=== PATIENT | female | born 1985 | race Caucasian/White ===

== ENCOUNTER 2017-05-13 15:02 | Inpatient (IN) | payer OTHER ==
[~2017-05-13 15:02] MED LIST: ALBUAER3 INH; HEMAPLEX PO; PREN1TAB58
[2017-05-20] VITALS (8 sets, daily range): BP systolic 112–145; BP diastolic 57–89; PULSE 61–86; RESP 18–20; TEMP 97.8–98.8; O2SAT 96–97
[2017-05-20] MEDS ORDERED: LACTATED RINGER'S 1000 ML INJ 1,000 ML IV ONE (08:57)
[2017-05-20] MEDS ORDERED: LACTATED RINGER'S 1000 ML INJ 1,000 ML IV SCH ×2 (09:27→17:15)
--- NOTE | 2017-05-20 09:29 | HHI.HP ---
HPI Chief Complaint Scheduled C/S Date Seen: May 20, 2017 Time Seen: 09:20 Travel History International Travel<30 Days: No Contact w/Intl Traveler<30Days: No History of Present Illness HPI 31-year-old presenting for scheduled primary for breech presentation with failed external cephalic version. At this time, she has no physical concerns. Denies chest pain, shortness of breath, dysuria, fever/ chills. Denies vaginal bleeding, contractions, leakage of fluid. Feeling positive movement. History Past Medical History Narrative Medical Mild to moderate asthma; last exacerbation 3 months ago Obstetric History Obstetric History First delivered vaginally Past Surgical History Surgical History: No Previous Surgery Family History Narrative Family History Sibling had seizures during , patient does not know if this was preeclampsia are not Social History Alcohol Use: No Tobacco Use: Yes (current 1 pack per day smoker, 15 pack year history) Substance Abuse: No Allergies-Medications (Allergen,Severity, Reaction): Coded Allergies: No Known Allergies (Unverified , 05/16/17) Home Meds Active Scripts [hemaplex] No Conflict Check2 Tab PO DAILY Prov:Caitlyn Johnson 05/01/17 Reported Medications Vit/Iron Fumarate/FA ( Vitamin Formula Tb)1 Each Tablet 05/01/17 Albuterol 8.5 GM Inh (Proair Hfa 8.5 GM Inh)90 Mcg/Act Aer2 Puff INH Q4-6H PRN ( SHORTNESS OF BREATH) #1 INHALER Ref 0 108 mcg/actuation 05/01/17 Review of Systems Except as stated in HPI: all other systems reviewed are Neg Physical Exam Narrative GENERAL: Well-nourished, well-developed patient. SKIN: Warm and dry. HEAD: Normocephalic and atraumatic. EYES: No scleral icterus. No injection or drainage. ENT: No nasal drainage noted. Mucous membranes pink. Airway patent. NECK: Supple, trachea midline. No JVD. CARDIOVASCULAR: Regular rate and rhythm without murmurs, gallops, or rubs. RESPIRATORY: Breath sounds equal bilaterally. No accessory muscle use. GENERAL: Well-nourished, well-developed patient. SKIN: Warm and dry. HEAD: Normocephalic and atraumatic. EYES: No scleral icterus. No injection or drainage. ENT: No nasal drainage noted. Mucous membranes pink. Airway patent. CARDIOVASCULAR: Regular rate and rhythm without murmurs, gallops, or rubs. RESPIRATORY: Breath sounds equal bilaterally. No accessory muscle use. ABDOMEN/GI: Abdomen soft, non-tender, no rebound, no guarding GENITOURINARY: Exam deferred FHT's: Category: 1 Baseline: 140 Reactive: Y Variability: moderate Decels: N EXTREMITIES: No cyanosis or edema. NEUROLOGICAL: Awake and alert. Motor and sensory grossly within normal limits. Normal speech. Data Data Vital Signs Reviewed: Yes Orders Admit To Inpatient (05/20/17 ) Vital Signs (Adult) .ON ADMISSION (05/20/17 08:57) Activity Oob Ad Karolina (05/20/17 08:57) Heart (05/20/17 08:57) Urinary Catheter Management NELY.Q8H (05/20/17 08:57) ^ Preps (05/20/17 08:57) Scd / Pranav / Foot Pump NELY.QSHIFT (05/20/17 08:57) ^ Ultrasound For Locatio (05/20/17 08:57) Diet Npo (05/20/17 Breakfast) Lactated Ringer's 1000 Ml Inj (Lr 1000 M (05/20/17 08:57) Lactated Ringer's 1000 Ml Inj (Lr 1000 M (05/20/17 09:27) Cefazolin 2 Gm Premix (Ancef 2 Gm Premix (05/20/17 10:00) Citric Acid-Sodium Citrate Liq (Bicitra (05/20/17 10:30) Type And Screen (05/20/17 08:57) Complete Blood Count With Diff (05/20/17 08:57) Urinalysis - C+S If Indicated (05/20/17 08:57) Inpatient Certification (05/20/17 ) Specimen To Be Collected PRN (05/20/17 08:57) Assessment/Plan Problem List: (1) Tobacco abuse Assessment and Plan 31-year-old presenting for primary for breech presentation #1 IUP Category 1 tracing, reassuring - Continuous monitoring until delivery #2 GBS negative #3 scheduled - Admit to labor and delivery - Cefazolin 2 g injection prior to incision - Routine preoperative care #4 tobacco abuse - Smoking cessation counseling after delivery - Nicotine patch after delivery if patient desires dw Jared Solano MD R1 May 20, 2017 09:29
[2017-05-20] MEDS ORDERED: ceFAZolin 2 GM PREMIX 50 ML IV SCH (10:00)
[2017-05-20 10:05] LABS: AUTOMATED NEUTROPHIL # 10.2 TH/MM3 (1.8-7.7); BASOPHIL # 0.1 TH/MM3 (0-0.2); BASOPHIL % 0.4 % (0.0-2.0); EOSINOPHIL # 0.1 TH/MM3 (0-0.4); HEMO FLAGS DIFF FINAL; LYMPH % 13.5 % (9.0-44.0); LYMPHOCYTE # 1.7 TH/MM3 (1.0-4.8); MEAN CELL VOLUME 91.3 FL (80.0-100.0); MEAN CORPUSCULAR HEMOGLOBIN 30.8 PG (27.0-34.0); MEAN CORPUSCULAR HGB CONC 33.7 % (32.0-36.0); MONO % 6.1 % (0.0-8.0); PLATELET COUNT 286 TH/MM3 (150-450); WHITE BLOOD COUNT 12.9 TH/MM3 (4.0-11.0)
[2017-05-20 10:17] LABS: BLOOD, URINE NEG (NEG); GLUCOSE,URINE NEG (NEG); KETONE, URINE NEG (NEG); NITRITE,URINE NEG (NEG); PH, URINE 6.5 (5.0-8.5); SQUAMOUS EPITHELIAL CELL URINE 1 /hpf (0-5); URINE COLOR YELLOW (YELLW/STRAW)
[2017-05-20 10:19] LABS: COMMENT (UR) CULT NOT INDICATED; CULTURE IF INDICATED CULT NOT INDICATED
[2017-05-20] MEDS ORDERED: CITRIC ACID-SODIUM CITRATE LIQ 30 ML UDC PO SCH (10:30)
[2017-05-20] MEDS ORDERED: OXYTOCIN 10 UNIT/ML AMP ONE (10:50)
[2017-05-20] MEDS ORDERED: MORPHINE SULFATE PF 5 MG/10 ML VIAL ONE (12:06)
--- NOTE | 2017-05-20 12:12 | PD.OB.DELI ---
Procedure Note Section Procedure Pre Op Diagnosis: (1) Breech presentation at (2) Gestational diabetes (3) 39 weeks gestation of Post Op Diagnosis: Performed by Asiya Armando Procedure: Primary Low Transverse Sec, Other (bilateral midsegment salpingectomy) Indication for delivery: malposition Confirmed correct: Patient, Procedure, Time-out taken Anesthesia: Spinal Medication prior to procedure: As documented in eMAR, Antibiotics, IV Monitoring during procedure: Blood pressure monitoring, tack welder Urinary catheter: Inserted using sterile technique, To dependent drainage, ml urine output (150) Sterile preparation: Duraprep Position: Supine with wedge to left side Operative Features Skin Incision: Pfannenstiel Uterine Incision: Low transverse w/knife / blunt ext Membranes Ruptured: Artificially, Appearance of fluid (clear) Presentation: Occiput anterior Time of : 11:32 Delivery of : Uneventful : Female One Minute : 8 Five Minute : 9 Weight: 3460gm Status of : Viable Placenta delivered: Intact Medications: Antibiotics Estimated blood loss: 400 Procedure tolerated: Well Maternal Condition: Stable Condition: Stable Asiya Armando MD May 20, 2017 12:12
[2017-05-20] MEDS ORDERED: SODIUM CHLORIDE 0.9% FLUSH 10 ML FLUSH IV FLUSH PRN (12:15)
[2017-05-20] MEDS ORDERED: KETOROLAC TROMETHAMINE 60 MG/2 ML (IM) VIAL IM PRN (12:15)
[2017-05-20] MEDS ORDERED: OXYTOCIN 30 UNITS-500ML PREMIX 500 ML IV ONE (12:15)
[2017-05-20] MEDS ORDERED: ONDANSETRON HCL 4 MG/2 ML VIAL IV PUSH PRN (12:15)
[2017-05-20] MEDS ORDERED: ZOLPIDEM TARTRATE 5 MG TAB PO PRN (12:15)
[2017-05-20] MEDS ORDERED: SIMETHICONE 80 MG CHEWABLE TAB PO PRN (12:15)
--- NOTE | 2017-05-20 12:56 | MP ---
cc: PATI MADRIGAL M.D. DATE OF SURGERY: 05/20/2017 SURGEON Pati Madrigal MD PREOPERATIVE DIAGNOSIS 1. 39-weeks gestation. 2. Breech presentation. 3. Desires permanent sterilization. POSTOPERATIVE DIAGNOSIS 1. 39-weeks gestation. 2. Breech presentation. 3. Desires permanent sterilization. PROCEDURE Primary low transverse section without extension with a bilateral mid segment salpingectomy. ESTIMATED BLOOD LOSS 400 ccs. ANESTHETIC Spinal. MEDICATION Ancef 2 grams given preoperatively. COMPLICATIONS None. COUNTS Correct x3. PATHOLOGY None. FINDINGS 1. Normal uterus, tubes and ovaries. 2. Clear amniotic fluid. 3. female complete breech presentation. Apgars were 8 and 9, weight was 3460 grams which equals 7 pounds 10 ounces, handed off to the resuscitation team with 45-second cord clamping delay. DESCRIPTION OF PROCEDURE The patient was taken back to the operating room where she was prepped and draped in the usual sterile fashion, placed in dorsosupine position. After adequate anesthetic was obtained she was positioned to the dorsosupine position. A Sepulveda catheter was placed. A Pfannenstiel incision was made in the skin and taken down to the fascia. The fascia was nicked in the midline and extended bilaterally, taken off the rectus muscles. The muscles divided in the midline, anterior peritoneum was entered. Vesicouterine and peritoneum was taken down. A transverse hysterotomy incision was made bluntly and extended bilaterally. Amniotic fluid was noted to be clear. Breech was delivered and flexing both legs at the knees, the lower extremities were delivered and using counterclockwise and clockwise traction the upper extremities delivered and the head was flexed and delivered to the operative field. 45-second cord delay was performed while resuscitation was given on the field with stimulation and bulb suction. Placenta was delivered intact spontaneously and endometrial cavity was curetted with moist laparotomy sponge. The hysterotomy was repaired using running locking #1 Chromic suture with good hemostasis at closure. Attention was then directed to the tubal segments where as the left tube was grasped in the midsegment portion with a Sanna and a 2 #1 Chromic suture was placed through avascular segment of the mesosalpinx and a 2 cm segment was removed. The right tube was approached in a similar manner with good hemostasis. Gutters were rendered free of all blood and clot material. The rectus muscles were plicated together in the midline gently with a #1 Chromic suture. Fascia was closed with #1 PDS, subcutaneous tissue was made hemostatic with Bovie and closed with interrupted sutures of plain gut. Subcuticular suture of 4-0 Monocryl was placed into the skin. She tolerated the procedure well. She was taken back to the recovery room in good condition. MD TERRI Vega/BILLY /12:19 PM /12:31 PM
[2017-05-20] MEDS ORDERED: EPIDURAL-NO SYSTEMIC NARCOTICS PRN (14:00)
[2017-05-20] MEDS ORDERED: EPIDURAL-NALOXONE HCL 0.4 MG/ML AMP IV PRN (14:00)
[2017-05-20] MEDS ORDERED: EPIDURAL-DIPHENHYDRAMINE HCL 50 MG/ML VIAL IV PUSH PRN (14:00)
[2017-05-20] MEDS ORDERED: EPIDURAL-DIPHENHYDRAMINE HCL 50 MG CAP PO PRN (14:00)
[2017-05-20] MEDS ORDERED: EPIDURAL-DO NOT ADMINISTER ANTICOAGULANTS PRN (14:00)
[2017-05-20] MEDS ORDERED: SODIUM CHLORIDE 0.9% FLUSH 10 ML FLUSH IV FLUSH SCH (21:00)
[2017-05-20] MEDS ORDERED: OXYTOCIN 30 UNITS-500ML PREMIX 500 ML IV PRN (22:15)
[2017-05-21 00:30] VITALS: BP 106/71; PULSE 61; RESP 18; TEMP 98.2
[2017-05-21] MEDS: IBUPROFEN 600 MG TAB PO PRN ×4 (01:02→22:48)
[2017-05-21] MEDS: oxyCODONE/ACETAMINOPHEN 5 MG/325 MG TAB PO PRN ×4 (03:10→22:49)
[2017-05-21 05:35] VITALS: BP 100/64; PULSE 59; RESP 16; TEMP 98.5
[2017-05-21 06:17] LABS: AUTOMATED NEUTROPHIL # 7.2 TH/MM3 (1.8-7.7); BASOPHIL % 0.3 % (0.0-2.0); EOSINOPHIL # 0.2 TH/MM3 (0-0.4); EOSINOPHIL % 1.8 % (0.0-4.0); HEMATOCRIT 25.9 % (35.0-46.0); HEMO FLAGS DIFF FINAL; LYMPH % 14.7 % (9.0-44.0); LYMPHOCYTE # 1.4 TH/MM3 (1.0-4.8); MEAN CELL VOLUME 91.6 FL (80.0-100.0); MEAN CORPUSCULAR HEMOGLOBIN 31.3 PG (27.0-34.0); MEAN CORPUSCULAR HGB CONC 34.1 % (32.0-36.0); MONO % 8.8 % (0.0-8.0); NEUT % 74.4 % (16.0-70.0); PLATELET COUNT 193 TH/MM3 (150-450); RED BLOOD COUNT 2.82 MIL/MM3 (4.00-5.30); RED CELL DISTRIBUTION WIDTH 13.8 % (11.6-17.2); WHITE BLOOD COUNT 9.6 TH/MM3 (4.0-11.0)
--- NOTE | 2017-05-21 08:27 | HHI.OB ---
Subjective Post Operative Day: 1 Remarks 31 year old female s/p primary C/S for breech presentation at 39 wks gestation, POD 1. AFVSS. Patient reports she is feeling well. Bleeding is decreasing and pain is well-controlled. She is breast feeding and bonding well with baby. Ambulating without difficulties. She is tolerating a diet without nausea or vomiting. She has not had a bowel movement. She has not passed gas. Denies chest pain, dysuria, shortness of breath, or calf pain. Objective Vitals/I&O Vital Signs Date Time Temp Pulse Resp B/P Pulse Ox O2 Delivery O2 Flow Rate FiO2 05/21/17 05:35 98.5 59 16 100/64 05/21/17 00:30 61 18 106/71 05/21/17 00:30 98.2 05/20/17 21:00 97.9 61 18 126/71 05/20/17 13:15 97.8 65 18 119/71 05/20/17 12:45 67 20 97 05/20/17 12:45 112/57 05/20/17 12:30 76 20 112/57 97 05/20/17 12:15 122/60 05/20/17 12:15 75 20 97 05/20/17 12:00 98.1 05/20/17 12:00 73 20 125/89 96 05/20/17 09:30 98.8 20 05/20/17 09:26 86 145/76 Result Diagram: 05/21/17 0531 Objective Remarks GENERAL: Well-nourished, well-developed patient. CARDIOVASCULAR: Regular rate and rhythm without murmurs, gallops, or rubs. RESPIRATORY: Breath sounds equal bilaterally. No accessory muscle use. ABDOMEN/GI: Abdomen soft, non-tender, bowel sounds present. Incision: Dressing covered in bandage, appearing dry; will check on POD 2. Fundus: Firm, non-tender at umbilicus. GENITOURINARY: Light to moderate bleeding. EXTREMITIES: No cyanosis or edema, non-tender, without signs of DVT. Medications and IVs Current Medications Medications (Trade) Dose Ordered Sig/Trinh Route Start Time Stop Time Status Last Admin (Lr 1000 ml Inj) 1,000 ml @ 100 mls/hr Q10H IV 05/20/17 17:15 05/21/17 13:14 05/20/17 14:50 (NS Flush) 2 ml BID IV FLUSH 05/20/17 21:00 (NS Flush) 2 ml UNSCH PRN IV FLUSH 05/20/17 12:15 (Mylicon Chew) 80 mg QID PRN PO 05/20/17 12:15 (Motrin) 600 mg Q6H PRN PO 05/20/17 12:15 05/21/17 01:02 (Toradol Inj) 30 mg Q6H PRN IM 05/20/17 12:15 05/21/17 12:14 05/20/17 18:29 (Percocet 5-325 Mg) 1 tab Q4H PRN PO 05/20/17 12:15 05/21/17 03:10 (Percocet 5-325 Mg) 2 tab Q4H PRN PO 05/20/17 12:15 (Mickie-Colace) 2 tab Q12H PRN PO 05/20/17 12:15 (Ambien) 5 mg HS PRN PO 05/20/17 12:15 (M-M-R Ii Inj) 0.5 ml ONCE ONCE SQ 05/21/17 16:00 05/21/17 16:01 (Boostrix Inj) 0.5 ml ONCE ONCE IM 05/21/17 16:00 05/21/17 16:01 (Zofran Inj) 4 mg Q6H PRN IV PUSH 05/20/17 12:15 Miscellaneous Information NO SYSTEMIC NARCOTICS TO BE GIVEN FO... UNSCH PRN .XX 05/20/17 14:00 05/21/17 13:59 (Narcan Inj) 0.4 mg UNSCH PRN IV 05/20/17 14:00 05/21/17 13:59 (Benadryl Inj) 25 mg Q6H PRN IV PUSH 05/20/17 14:00 05/21/17 13:59 05/20/17 15:12 (Benadryl) 50 mg Q6H PRN PO 05/20/17 14:00 05/21/17 13:59 Miscellaneous Information ALL NURSING DEPARTMENTS UNSCH PRN .XX 05/20/17 14:00 05/21/17 13:59 Assessment/Plan Problem List: (1) Tobacco abuse Assessment and Plan 31 yo female s/p primary C/S for breech presentation, POD 1 - AFVSS - Continue routine care - Motrin and Percocet PRN pain - Encourage OOB - Pelvic rest x 6 wks. Will need 1 week incision check. - Contraception: S/p tubal ligation - Anticipate D/C 05/22 or 05/23 Jared Esparza MD R1 May 21, 2017 08:27
[2017-05-21] MEDS: DOCUSATE SODIUM 50 MG/SENNA 8.6 MG TAB PO PRN ×2 (09:08→22:48)
[2017-05-21 09:10] VITALS: BP 146/64; PULSE 73; RESP 18; TEMP 98; TEMP 98.2
[2017-05-21] MEDS ORDERED: MEASLES, MUMPS, RUBELLA VACCINE 0.5 ML VIAL SQ ONE (16:00)
[2017-05-21] MEDS ORDERED: DIPHTH/TETANUS/ACEL PERTUSSIS (BOOSTER) 0.5 ML VIAL/PFS IM ONE (16:00)
[2017-05-21 22:35] VITALS: BP 127/68; PULSE 71; RESP 17; TEMP 98.4; O2SAT 97
[2017-05-22] MEDS: IBUPROFEN 600 MG TAB PO PRN ×2 (04:53→12:40)
[2017-05-22] MEDS: oxyCODONE/ACETAMINOPHEN 5 MG/325 MG TAB PO PRN ×2 (07:27→12:40)
[2017-05-22] MEDS ORDERED: SENN1TAB PO (08:17)
[2017-05-22] MEDS ORDERED: OXYC1TAB63 PO (08:17)
[2017-05-22] MEDS ORDERED: IBUP-232 PO (08:17)
--- NOTE | 2017-05-22 08:17 | HHI.DCPOC ---
Discharge Care Plan Diagnosis: (1) delivery, delivered, current hospitalization Report Symptoms to Your Doctor -Temperature above 100.5 degrees -Redness, of incision or excessive or foul smelling drainage -Unusual pain or calf pain -Increased vaginal bleeding -Painful or difficulty urinating -Feelings of extreme sadness or anxiety after 2 weeks Goals to Promote Your Health * To prevent worsening of your condition and complications * To maintain your health at the optimal level Directions to Meet Your Goals Take your medications as prescribed Follow your dietary instruction Follow activity as directed Ensure plenty of rest for recovery Drink fluids for hydration Keep your appointments as scheduled Take your immunizations and boosters as scheduled If your symptoms worsen call your PCP, if no PCP go to Urgent Care Center or Emergency Room Smoking is Dangerous to Your Health. Avoid second hand smoke Call the 24-hour crisis hotline for domestic abuse at Jared Esparza MD R1 May 22, 2017 08:17
[2017-05-22 08:50] VITALS: BP 113/67; PULSE 66; RESP 20; TEMP 98.1
--- NOTE | 2017-05-22 09:00 | HHI.OB ---
Subjective Post Operative Day: 2 Remarks 31 year old female s/p primary C/S for breech presentation at 39 wks gestation, POD 2. AFVSS. Patient reports she is feeling well. Bleeding is decreasing and pain is well-controlled. She is breast feeding and bonding well with baby. Ambulating without difficulties. She is tolerating a diet without nausea or vomiting. She has not had a bowel movement. She has passed gas. Denies chest pain, dysuria, shortness of breath, or calf pain. Objective Vitals/I&O Vital Signs Date Time Temp Pulse Resp B/P Pulse Ox O2 Delivery O2 Flow Rate FiO2 05/21/17 22:35 97 05/21/17 22:35 127/68 05/21/17 22:35 98.4 71 17 05/21/17 09:10 98.0 18 05/21/17 09:10 98.2 05/21/17 09:10 73 146/64 Result Diagram: 05/21/17 0531 Objective Remarks GENERAL: Well-nourished, well-developed patient. CARDIOVASCULAR: Regular rate and rhythm without murmurs, gallops, or rubs. RESPIRATORY: Breath sounds equal bilaterally. No accessory muscle use. ABDOMEN/GI: Abdomen soft, non-tender, bowel sounds present. Incision: Clean, dry, and intact with Steri-Strips in place. Fundus: Firm, non-tender at umbilicus. GENITOURINARY: Light to moderate bleeding. EXTREMITIES: No cyanosis or edema, non-tender, without signs of DVT. Medications and IVs Current Medications Medications (Trade) Dose Ordered Sig/Trinh Route Start Time Stop Time Status Last Admin (NS Flush) 2 ml BID IV FLUSH 05/20/17 21:00 (NS Flush) 2 ml UNSCH PRN IV FLUSH 05/20/17 12:15 (Mylicon Chew) 80 mg QID PRN PO 05/20/17 12:15 (Motrin) 600 mg Q6H PRN PO 05/20/17 12:15 05/22/17 04:53 (Percocet 5-325 Mg) 1 tab Q4H PRN PO 05/20/17 12:15 05/21/17 22:49 (Percocet 5-325 Mg) 2 tab Q4H PRN PO 05/20/17 12:15 05/22/17 07:27 (Mickie-Colace) 2 tab Q12H PRN PO 05/20/17 12:15 05/21/17 22:48 (Ambien) 5 mg HS PRN PO 05/20/17 12:15 (Zofran Inj) 4 mg Q6H PRN IV PUSH 05/20/17 12:15 Assessment/Plan Problem List: (1) Tobacco abuse Assessment and Plan 31 yo female s/p primary C/S for breech presentation, POD 2 - AFVSS - Continue routine care - Motrin and Percocet PRN pain - Encourage OOB - Pelvic rest x 6 wks. Will need 1 week incision check. - Contraception: S/p tubal ligation - Discharge home today Jared Esparza MD R1 May 22, 2017 09:00
== END 2017-05-22 15:56 | disposition home or self-care (01) | DRG 766 ==
LOC: H2EB 05-20 08:51 → H1EA 05-20 13:05
PROVIDERS: ADMIT Obstetrics & Gynecology Obstetrics; ATTEND Obstetrics & Gynecology Obstetrics
PROC: 10D00Z1 Extraction of Products of Conception, Low, Open Approach (ICD-10-PCS; principal; 2017-05-20)
PROC: 0UB70ZZ Excision of Bilateral Fallopian Tubes, Open Approach (ICD-10-PCS; 2017-05-20)
DX: O32.1XX0 Maternal care for breech presentation, not applicable or unspecified (principal); O24.429 Gestational diabetes mellitus in childbirth, unspecified control; F17.210 Nicotine dependence, cigarettes, uncomplicated; O99.52 Diseases of the respiratory system complicating childbirth; J45.909 Unspecified asthma, uncomplicated; O99.334 Smoking (tobacco) complicating childbirth; Z30.2 Encounter for sterilization; Z3A.39 39 weeks gestation of pregnancy; Z37.0 Single live birth
CPT/HCPCS: 59025; 81001; 85025; 86850; 86900; 86901; 88302; 90715; J0690; J1200; J1885; J2274; J2590; J3010; J7120